=== PATIENT | female | born 1990 | race Asian ===

== ENCOUNTER 2022-09-27 21:56 | Emergency (ER) | payer SELFPAY ==
[2022-09-27] MEDS ORDERED: Ondansetron 4 MG Tab.DIS PO ONE ×3 (21:57→22:49)
== END 2022-09-27 23:00 | disposition home or self-care (01) ==
LOC: FB.ED 21:56
DX: K52.9 Noninfective gastroenteritis and colitis, unspecified (principal)
CPT/HCPCS: 99283; Q0162